=== PATIENT | male | born 1965 | race American Indian/Alaskan Native ===

== ENCOUNTER 2019-11-12 17:15 | Inpatient (IN) | payer OTHER ==
[2019-11-12 18:54] LABS: Bilirubin,Urine NEG (Negative); Blood,Urine NEG (Negative); Color,Urine Yellow (Yellow); Protein,Urine <15 mg/dL mg/dL (Negative); Urobilinogen,Urine < 2.0 mg/dL (<2.0); WBC,Urine < 1.0 /HPF (0.0-6.0)
--- NOTE | 2019-11-12 20:04 | XRay Report ---
CHEST 2 VIEWS INDICATION / CLINICAL INFORMATION: Chest Pain. COMPARISON: None available. FINDINGS: SUPPORT DEVICES: None. HEART / MEDIASTINUM: The heart size and pulmonary vasculature are normal. There is mild aortic tortuo sity without aneurysm. LUNGS / PLEURA: No significant pulmonary or pleural abnormality. No pneumothorax. ADDITIONAL FINDINGS: There is mild gaseous distention of the visualized portion of the colon. IMPRESSION: 1. No acute pulmonary disease. 2. Mild nonspecific gaseous distention of the visualized portion of the colon. Signer Name: Spencer Matthews MD Signed: 11/12/2019 7:59 PM Workstation Name: [id number]
--- NOTE | 2019-11-12 21:04 | Emergency Department Report ---
ED Chest Pain HPI - General Chief Complaint: Chest Pain Stated Complaint: CHEST PAIN PUI?: No Time Seen by Provider: 11/12/19 20:55 Source: patient Mode of arrival: Ambulatory Limitations: No Limitations - History of Present Illness Initial Comments: Patient is a 54-year-old male that presents emergency room with complaints of l eft-sided chest pain. Patient dates his chest pain started 2 PM today. Patient states his chest pain is worse with anxiety and exertion and movement. Patient states the chest pain is better with rest. Patient also complains of shortness of breath. Patient dates that shortness of breath better with rest and worse with exertion. Patient states that he has anxiety and PTSD and has had 2 MIs and cardiac stents. Patient states he is also had A. fib in the past. Patient denies fever and chills. Patient denies diarrhea. Patient denies nausea vomiting. Patient denies recent travel. Patient denies recent international travel. Patient denies exposure to the novel coronavirus. Patient denies sick contacts. Patient denies fever and chills. Patient denies cough. Patient denies diarrhe a. Patient denies coming in contact with anybody with symptoms of the novel coronavirus. MD Complaint: chest pain -: Sudden, days(s) Onset: during rest Pain Location: substernal, left chest Pain Radiation: none Severity: severe Severity scale (0 -10): 8 Quality: heaviness Improves With: rest Worsens With: exertion re: dyspnea, sense of impending doom. denies: nausea, vomting, diaphoresis Other Symptoms: denies: cough, fever, syncope, rash, acid taste in mouth, leg swelling, palpitations, burping Treatments Prior to Arrival: none Aspirin use within the Past 7 Days: (1) Yes - Related Data On Oral Contraceptives: No Allergies Allergy/AdvReac Type Severity Reaction Status Date / Time No Known Allergies Allergy Unverified 11/12/19 18:17 Heart Score - HEART Score History: Moderately suspicious EKG: Non-specific Age: 45-65 Risk factors: > 3 risk factors or hx of atherosclerotic disease Troponin: < normal limit HEART Score: 5 ED Review of Systems ROS: Stated complaint: CHEST PAIN Other details as noted in HPI Constitutional: denies: chills, fever Eyes: denies: eye pain, eye discharge, vision change ENT: denies: ear pain, throat pain Respiratory: shortness of breath. denies: cough, wheezing Cardiovascular: chest pain. denies: palpitations Endocrine: no symptoms reported Gastrointestinal: denies: abdominal pain, nausea, diarrhea Genitourinary: denies: urgency, dysuria Musculoskeletal: denies: back pain, joint swelling, arthralgia Skin: denies: rash, lesions Neurological: denies: headache, weakness, paresthesias Psychiatric: denies: anxiety, depression Hematological/Lymphatic: denies: easy bleeding, easy bruising ED Past Medical Hx - Past Medical History Previous Medical History?: Yes Hx Heart Attack/AMI: Yes Hx Psychiatric Treatment: Yes (anxiety) - Surgical History Past Surgical History?: Yes Additional Surgical History: caridac stent - Family History Family history: no significant - Social History Smoking Status: Current Every Day Smoker Substance Use Type: Alcohol ED Physical Exam - General Limitations: No Limitations General appearance: alert, in no apparent distress - Head Head exam: Present: atraumatic, normocephalic - Eye Eye exam: Present: normal appearance - ENT ENT exam: Present: mucous membranes moist - Neck Neck exam: Present: normal inspection - Respiratory Respiratory exam: Present: normal lung sounds bilaterally. Absent: respiratory distress - Cardiovascular Cardiovascular Exam: Present: regular rate, normal rhythm. Absent: systolic murmur, diastolic murmur, rubs, gallop - GI/Abdominal GI/Abdominal exam: Present: soft, normal bowel sounds - Rectal Rectal exam: Present: deferred - Extremities Exam Extremities exam: Present: normal inspection - Back Exam Back exam: Present: normal inspection - Neurological Exam Neurological exam: Present: alert, oriented X3 - Psychiatric Psychiatric exam: Present: normal affect, normal mood - Skin Skin exam: Present: warm, dry, intact, normal color. Absent: rash ED Course Vital Signs 11/12/19 11/12/19 11/12/19 18:15 21:08 22:37 Temperature 98.4 F 98 F Pulse Rate 99 H 85 Respiratory 24 20 18 Rate Blood Pressure 137/98 Blood Pressure 124/71 [Right] O2 Sat by Pulse 99 96 Oximetry 11/12/19 11/12/19 23:24 23:26 Temperature Pulse Rate 79 Respiratory 18 18 Rate Blood Pressure Blood Pressure 121/72 [Right] O2 Sat by Pulse 96 Oximetry - Reevaluation(s) Reevaluation #1: I discussed all results with patient. I discussed plan of care with patient. Patient agrees with plan of care and admission. Patient to be admitted to the hospitalist service. Patient states the pain is better. 11/12/19 23:34 - Consultations Consultation #1: Hospitalist consulted for admission. Hospitalist to admit patient. Bridge orders placed 11/12/19 23:34 MILLY score - Milly Score Age > 65: (0) No Aspirin use within the Past 7 Days: (1) Yes 3 or more CAD Risk Factors: (1) Yes 2 or more Angina events in past 24 hrs: (0) No Known CAD with more than 50% Stenosis: (0) No Elevated Cardiac Markers: (0) No ST Deviation Greater than 0.5mm: (0) No MILLY Score: 2 ED Medical Decision Making - Lab Data Result diagrams: 11/12/19 20:39 11/12/19 20:39 - EKG Data -: EKG Interpreted by Me EKG shows normal: sinus rhythm, axis, intervals, QRS complexes, ST-T waves Rate: normal - Radiology Data Radiology results: report reviewed, image reviewed interpreted by me: No acute findings on chest x-ray. - Medical Decision Making Patient is a 54-year-old male that presents emergency room with complaints of chest pain. Patient history of CAD. Patient admitted to the hospitalist service for further evaluation treatment. Patient will need to be ruled out for ACS. Patient's EKG is negative for an acute finding. No STEMI on EKG. Patient's labs are unremarkable. Patient's initial cardiac work-up is negative. - Differential Diagnosis Chest pain, ACS, S OB, pneumonia, Critical Care Time: Yes Critical care time in (mins) excluding proc time.: 35 Critical care attestation.: If time is entered above; I have spent that time in minutes in the direct care of this critically ill patient, excluding procedure time. Critical Care Time: 35 minutes ED Disposition Clinical Impression: SOB (shortness of breath) Chest pain Qualifiers: Chest pain type: unspecified Qualified Code(s): R07.9 - Chest pain, unspecified CAD (coronary artery disease) Qualifiers: Coronary Disease-Associated Artery/Lesion type: [place] artery [place] vs. transplanted heart: [place] heart Associated angina: with unspecified angina Qualified Code(s): I25.119 - Atherosclerotic heart disease of [place] coronary artery with unspecified angina pectoris Disposition: DC-09 OP ADMIT IP TO THIS HOSP Is pt being admited?: Yes Does the pt Need Aspirin: No Condition: Critical Time of Disposition: 23:38
[2019-11-12] MEDS ORDERED: ASPIRIN 325 MG TAB PO ONE (21:20)
[2019-11-12 21:43] LABS: Basophils % (Auto) 0.4 % (0.0-1.8); Eosinophils # (Auto) 0.1 K/mm3 (0.0-0.4); Eosinophils % (Auto) 1.4 % (0.0-4.3); Hematocrit 42.3 % (35.5-45.6); Hemoglobin 14.4 gm/dl (11.8-15.2); Lymphocytes # (Auto) 3.4 K/mm3 (1.2-5.4); Lymphocytes % (Auto) 46.1 % (13.4-35.0); Mean Corpuscular HGB Conc 34 % (32-34); Mean Corpuscular Volume 97 fl (84-94); Monocytes # (Auto) 0.6 K/mm3 (0.0-0.8); Monocytes % (Auto) 8.4 % (0.0-7.3); Platelet Count 312 K/mm3 (140-440); Red Blood Count 4.36 M/mm3 (3.65-5.03)
[2019-11-12 22:09] LABS: Alanine Aminotransferase 19 units/L (7-56); Albumin 4.6 g/dL (3.9-5); BUN/Creatinine Ratio 22; Blood Urea Nitrogen 22 mg/dL (9-20); Calcium 9.1 mg/dL (8.4-10.2); Hemolysis Index 5
[2019-11-12] MEDS ORDERED: MORPHINE 2 MG/1 ML INJ ONE (22:31)
[2019-11-12] MEDS ORDERED: MORPHINE 2 MG/1 ML INJ IV ONE (22:34)
[2019-11-12] MEDS ORDERED: HYDROmorphone 1 MG/1 ML INJ IV ONE (23:22)
[2019-11-12] MEDS ORDERED: HYDROmorphone 1 MG/1 ML INJ ONE (23:22)
[2019-11-13] MEDS ORDERED: MORPHINE 2 MG/1 ML INJ IV PRN (01:21)
[2019-11-13] MEDS ORDERED: ACETAMINOPHEN 325 MG TAB PO PRN (01:22)
[2019-11-13] MEDS ORDERED: ONDANSETRON 4 MG/2 ML INJ IV PRN (01:22)
[2019-11-13] MEDS ORDERED: NITROGLYCERIN 0.4 MG TAB SUBL SL PRN (01:24)
--- NOTE | 2019-11-13 04:16 | History and Physical Report ---
History of Present Illness Date of examination: 11/12/19 Date of admission: 11/12/19 23:33 Chief complaint: Chest pain History of present illness: 54 year old male presenting with precordial sharp chest pain worse with anxiety and movement but better with rest. pain is associated with shortness of breath . There is no nausea and vomiting and no diaphoresis or dizziness. Pain is relieved with pain medication. Past History Past Medical History: acute NH, CAD, other (ANXIETY AND PTSD) Social history: smoking (CARDIAC STENT), alcohol abuse Family history: no significant family history Medications and Allergies Allergies Allergy/AdvReac Type Severity Reaction Status Date / Time No Known Allergies Allergy Unverified 11/12/19 18:17 Active Meds: Active Medications Acetaminophen (Tylenol) 650 mg PO Q4H PRN PRN Reason: Headache Aspirin (Aspirin) 325 mg PO QDAY BANDAR Heparin Sodium (Porcine) (Heparin) 5,000 unit SUB-Q Q12HR [facility] Morphine Sulfate (Morphine) 2 mg IV Q3H PRN PRN Reason: Pain, Moderate (4-6) Nitroglycerin (Nitro-Bid 2%) 0.5 inch TP QIDNTG [facility]; Protocol Nitroglycerin (Nitrostat) 0.4 mg SL .Q5MIN PRN PRN Reason: Chest Pain Ondansetron HCl (Zofran) 4 mg IV Q8H PRN PRN Reason: Nausea And Vomiting Review of Systems Constitutional: no weight loss, no weight gain, no fever, no sweats, no fatigue, no weakness, no malaise, no poor appetite Eyes: bilateral: other (NO BILATERAL EYE SYMPTOM) Ears, nose, mouth and throat: no ear pain, no decreased hearing, no nose pain, no nasal congestion, no nasal discharge, no sinus pressure, no mouth pain, no dysphagia, no hoarseness, no sore throat, no voice changes, no headache, no vertigo Cardiovascular: chest pain, shortness of breath, no orthopnea, no palpitations, no rapid/irregular heart beat, no edema, no syncope, no lightheadedness, no claudication, no high blood pressure Respiratory: shortness of breath, no cough, no cough with sputum, no excessive sputum, no hemoptysis, no congestion, no wheezing, no pleurisy, no pain, no sleep apnea, no home oxygen Gastrointestinal: no nausea, no vomiting, no diarrhea, no constipation, no change in bowel habits, no hematemesis, no coffee ground emesis, no melena, no hematochezia, no loss of appetite, no early satiety, no heartburn, no indigestion, no jaundice Genitourinary Male: no hematuria, no flank pain, no discharge, no urinary frequency, no urinary hesitancy, no nocturia, no incontinence, no impotence Rectal: no pain, no incontinence, no itching, no hemorrhoids, no flatulence Musculoskeletal: no neck stiffness, no neck pain, no shooting arm pain, no arm numbness/tingling, no low back pain, no shooting leg pain, no leg numb ness/tingling, no morning stiffness, no muscle weakness, no muscle cramps, no myalgias, no atrophy Integumentary: no rash, no pruritis, no redness, no sores, no wounds, no jau ndice, no boils, no lesions, no darkening of skin, no depigmentation, no dryness, no color changes, no striae, no hirsutism Neurological: no head injury, no paralysis, no weakness, no numbness, no tingling, no seizures, no syncope, no tremors, no ataxia, no headaches, no michael bairon, no convulsions, no aphasia, no change in speech, no change in mentation, no confusion, no double vision, no loss of vision Psychiatric: anxiety, no insomnia, no hypersomnia, no change in libido, no hopelessness Endocrine: no cold intolerance, no heat intolerance, no polyphagia, no polyuria, no nocturia, no palpatations Hematologic/Lymphatic: no easy bruising, no easy bleeding Exam - Constitutional Vitals: Temp Pulse Resp BP Pulse Ox 98.2 F 81 20 133/84 96 11/13/19 01:00 11/13/19 01:00 11/13/19 01:00 11/13/19 01:00 11/13/19 01:00 General appearance: Present: mild distress. Absent: disheveled - EENT Eyes: Present: PERRL, EOM intact. Absent: scleral icterus ENT: hearing intact, clear oral mucosa, no oropharyngeal erythema, no edentulous - Neck Neck: Present: supple, normal ROM. Absent: rigidity, enlarged thyroid, masses or JVD, carotid bruits - Respiratory Respiratory effort: normal - Cardiovascular Rhythm: regular Heart Sounds: Present: S1 & S2. Absent: gallop, systolic murmur, diastolic murmur, click - Extremities Extremities: no ischemia, No edema Peripheral Pulses: within normal limits - Abdominal General gastrointestinal: Present: soft, non-tender, non-distended. Absent: tender, distended, rigid, hepatomegaly, splenomegaly, mass, hernia Male genitourinary: Present: deferred - Rectal Rectal Exam: deferred - Integumentary Integumentary: Present: clear, warm, dry - Musculoskeletal Musculoskeletal: strength equal bilaterally - Psychiatric Psychiatric: appropriate mood/affect HEART Score - HEART Score EKG: Non-specific Age: 45-65 Risk factors: > 3 risk factors or hx of atherosclerotic disease Troponin: Troponin T < 0.010 ng/mL (0.00-0.029) 11/13/19 00:17 Troponin: < normal limit Results - Labs CBC & Chem 7: 11/12/19 20:39 11/12/19 20:39 Labs: Laboratory Last Values WBC 7.4 K/mm3 (4.5-11.0) 11/12/19 20:39 RBC 4.36 M/mm3 (3.65-5.03) 11/12/19 20:39 Hgb 14.4 gm/dl (11.8-15.2) 11/12/19 20:39 Hct 42.3 % (35.5-45.6) 11/12/19 20:39 MCV 97 fl (84-94) H 11/12/19 20:39 MCH 33 pg (28-32) H 11/12/19 20:39 MCHC 34 % (32-34) 11/12/19 20:39 RDW 14.0 % (13.2-15.2) 11/12/19 20:39 Plt Count 312 K/mm3 (140-440) 11/12/19 20:39 Lymph % (Auto) 46.1 % (13.4-35.0) H 11/12/19 20:39 [place] % (Auto) 8.4 % (0.0-7.3) H 11/12/19 20:39 Eos % (Auto) 1.4 % (0.0-4.3) 11/12/19 20:39 Baso % (Auto) 0.4 % (0.0-1.8) 11/12/19 20:39 Lymph # 3.4 K/mm3 (1.2-5.4) 11/12/19 20:39 [place] # 0.6 K/mm3 (0.0-0.8) 11/12/19 20:39 Eos # 0.1 K/mm3 (0.0-0.4) 11/12/19 20:39 Baso # 0.0 K/mm3 (0.0-0.1) 11/12/19 20:39 Seg Neutrophils % 43.7 % (40.0-70.0) 11/12/19 20:39 Seg Neutrophils # 3.2 K/mm3 (1.8-7.7) 11/12/19 20:39 Sodium 137 mmol/L (137-145) 11/12/19 20:39 Potassium 3.5 mmol/L (3.6-5.0) L 11/12/19 20:39 Chloride 98.5 mmol/L (98-107) 11/12/19 20:39 Carbon Dioxide 21 mmol/L (22-30) L 11/12/19 20:39 Anion Gap 21 mmol/L 11/12/19 20:39 BUN 22 mg/dL (9-20) H 11/12/19 20:39 Creatinine 1.0 mg/dL (0.8-1.5) 11/12/19 20:39 Estimated GFR > 60 ml/min 11/12/19 20:39 BUN/Creatinine Ratio 22 % 11/12/19 20:39 Glucose 109 mg/dL (75-100) H 11/12/19 20:39 Calcium 9.1 mg/dL (8.4-10.2) 11/12/19 20:39 Total Bilirubin 0.70 mg/dL (0.1-1.2) 11/12/19 20:39 AST 31 units/L (5-40) 11/12/19 20:39 ALT 19 units/L (7-56) 11/12/19 20:39 Alkaline Phosphatase 70 units/L (35-129) 11/12/19 20:39 Troponin T < 0.010 ng/mL (0.00-0.029) 11/13/19 00:17 Total Protein 8.0 g/dL (6.3-8.2) 11/12/19 20:39 Albumin 4.6 g/dL (3.9-5) 11/12/19 20:39 Albumin/Globulin Ratio 1.4 % 11/12/19 20:39 Urine Color Yellow (Yellow) 11/12/19 18:38 Urine Turbidity Clear (Clear) 11/12/19 18:38 Urine pH 5.0 (5.0-7.0) 11/12/19 18:38 Ur Specific [place] 1.015 (1.003-1.030) 11/12/19 18:38 Urine Protein <15 mg/dl mg/dL (Negative) 11/12/19 18:38 Urine Glucose (UA) Neg mg/dL (Negative) 11/12/19 18:38 Urine Ketones 20 mg/dL (Negative) 11/12/19 18:38 Urine Blood Neg (Negative) 11/12/19 18:38 Urine Nitrite Neg (Negative) 11/12/19 18:38 Urine Bilirubin Neg (Negative) 11/12/19 18:38 Urine Urobilinogen < 2.0 mg/dL (<2.0) 11/12/19 18:38 Ur Leukocyte Esterase Neg (Negative) 11/12/19 18:38 Urine WBC (Auto) < 1.0 /HPF (0.0-6.0) 11/12/19 18:38 Urine RBC (Auto) 3.0 /HPF (0.0-6.0) 11/12/19 18:38 Jimenez/IV: IV Catheter Type [Right Hand] INT / Saline Lock Assessment and Plan - Patient Problems (1) Hypokalemia Current Visit: Yes Status: Acute Plan to address problem: I.V Potassium replacement (2) Chest pain Current Visit: Yes Status: Acute Qualifiers: Chest pain type: unspecified Qualified Code(s): R07.9 - Chest pain, unspecified Plan to address problem: 1. Telemetry observation 2. Serial cardiac enzymes 3. Nitro paste and sublingual nitroglycerin 4. NPO and lexican stress test 5. I.V Morphine for pain 6. I.V Zofran for nausea and vomiting 7. PO Aspirin 8. Tylenol Po PRN headache 9. Oxygen by N/Cannula
[2019-11-13 06:10] LABS: Creatine Kinase MB 6.6 ng/mL (0.0-4.0)
[2019-11-13] MEDS ORDERED: REGADENOSON 0.4 MG/5 ML INJ IV ONE (07:05)
[2019-11-13] MEDS: ASPIRIN 325 MG TAB PO SCH (10:28)
[2019-11-13] MEDS: NITROGLYCERIN 2% OINT 1 GM TP SCH ×3 (10:29→19:52)
--- NOTE | 2019-11-13 10:35 | Discharge Summary ---
Providers - Providers Date of Admission: 11/12/19 23:33 Attending physician: CYNTHIA MARTINEZ MD Primary care physician: HOME HEALTH CLINICIAN Hospitalization Condition: Stable Hospital course: denies suicidal ideation wants to get established with psychiatrist wants pain medicine provided psych outpatient follow up cardiology outpatient gave a dose of toradol Disposition: DC-01 TO HOME OR SELFCARE Time spent for discharge: 35 mins Exam - Constitutional Vitals: Temp Pulse Resp BP Pulse Ox 98.0 F 68 18 122/77 96 11/13/19 03:58 11/13/19 10:29 11/13/19 03:58 11/13/19 10:29 11/13/19 03:58 Plan Activity: advance as tolerated, fall precautions Diet: low fat Special Instructions: record daily BP diary Follow up with: AYDIN MENENDEZ MD [Primary Care Provider] - 7 Days BOAZ BARRIOS MD [Staff Physician] - 7 Days [facility] [Outside] - 7 Days Prescriptions: AtorvaSTATin [Lipitor] 40 mg PO QHS #30 tab Aspirin [Adult Aspirin] 81 mg PO DAILY #30 tablet. Nitroglycerin [Nitrostat] 0.4 mg SL Q5M PRN #10 tab PRN Reason: Chest Pain traMADoL [Ultram] 50 mg PO Q6HR PRN #10 tablet PRN Reason: Pain
[2019-11-13] MEDS: HEPARIN 5,000 UNIT/1 ML VIAL SUB-Q SCH ×2 (12:28→21:54)
[2019-11-13 14:43] LABS: Creatine Kinase MB 5.6 ng/mL (0.0-4.0)
[2019-11-13] MEDS ORDERED: KETOROLAC 30 MG/1 ML INJ IV ONE (16:36)
--- NOTE | 2019-11-13 18:04 | Event Note ---
Date: 11/13/19 Primary team has requested me to reassess the patient Patient says he has PTSD and is suicidal Patient says that even if his discharge is going to come back to the emergency room for evaluation suicidal ideation and thoughts. Discussed with primary team and will make the patient [id number] and discontinue pain medications. Primary team Dr. peterson to follow the patient
--- NOTE | 2019-11-13 20:11 | Treadmill Report ---
THALLIUM STRESS TEST LEFT VENTRICLE: Left ventricular chamber size is within normal spread. Perfusion study demonstrates mild diaphragmatic attenuation artifact, also demonstrates normal apical thinning, otherwise homogeneous uptake of the tracer in all segments. No significant defects identified. Gated analysis demonstrates normal left ventricular systolic function, ejection fraction 63%. CONCLUSION: Normal myocardial perfusion study. JOB# [id number] CA/NTS
[2019-11-14] MEDS: KETOROLAC 30 MG/1 ML INJ IV SCH ×5 (01:58→17:57)
[2019-11-14] MEDS: NITROGLYCERIN 2% OINT 1 GM TP SCH ×4 (05:36→17:58)
--- NOTE | 2019-11-14 08:44 | Progress Note ---
Assessment and Plan Assessment and plan: Patient is a 54-year-old male with past medical history of CAD status post PTCA according to the patient also history of A. fib in the past on no medication outpatient presented to the ED with complaint of chest pain x2 days states that he moved from [place] about 3 weeks ago. He also reports that he has history of anxiety disorder and PTSD due to his son killing himself. He continues to have persistent chest pain and anxious appearing despite negative stress test and requested to be "[place] acted" as he is unsure what he will do to himself if discharged with the pain that he is dealing with. His vital signs are stable despite his complaint of greater than 10 out of 10 chest pressure. He does not demonstrate any acute shortness of breath. Trial of Toradol did not appear to provide any relief. He persistently asked for a psych evaluation. Atypical chest pain possible costochondritis Anxiety disorder Suicidal ideation PTSD Morbid obesity Plan Continue current management Placed on 1013 hold as patient repeatedly insisted that he will hurt himself on discharge even after earlier saying that he does not plan to do that but only after he realized he would not be getting IV pain medication on discharge. Mental health is definitely an issue that should not be tolerated and as a resu lt we will get psych to evaluate the patient Continue supportive care Cardiology input appreciated Stress test reviewed and negative. DVT and GI prophylaxis Late entry as patient was planned for discharge History Interval history: Patient was seen and examined following stress testing complained that he has persistent chest pressure on his left side of his chest. He also further explains that he has PTSD and anxiety disorder and would like to see a psy chiatrist and a credit and loan collections supervisor. He also wanted some pain medication. When advised about the management plan and also asked if he was suicidal the patient stated no that he is not suicidal. An outline and plan discharge plan was laid out but once he realized that continued IV pain medication was not going to be given he stated that he does not know what he will do with his discharge that he may hurt himself and as a result was placed on 1013 which he requested. Hospitalist Physical - Physical exam Narrative exam: VITAL SIGNS: Reviewed. GENERAL: The patient appears normally developed, morbidly obese vital signs as documented. HEAD: No signs of head trauma. EYES: Pupils are equal. Extraocular motions intact. EARS: Hearing grossly intact. MOUTH: Oropharynx is normal. NECK: No adenopathy, no JVD. CHEST: Chest with clear breath sounds bilaterally. No wheezes, rales, or rhonchi. CARDIAC: Regular rate and rhythm. S1 and S2, without murmurs, gallops, or rubs. VASCULAR: No Edema. Peripheral pulses normal and equal in all extremities. ABDOMEN: Soft, non tender and non distended. No rebound or guarding, and no masses palpated. Bowel Sounds normal. MUSCULOSKELETAL: Good range of motion of all major joints. Extremities without clubbing, cyanosis or edema. NEUROLOGIC EXAM: Alert and oriented x 3 No focal sensory or strength deficits. Speech normal. Follows commands. PSYCHIATRIC: Flat affect SKIN: detial exam as documented in skin assessment - Constitutional Vitals: Temp Pulse Resp BP Pulse Ox 98.2 F 86 12 120/72 96 11/14/19 04:55 11/14/19 05:36 11/14/19 04:55 11/14/19 04:55 11/14/19 04:55 General appearance: Present: mild distress. Absent: disheveled HEART Score - HEART Score EKG: Non-specific Age: 45-65 Risk factors: > 3 risk factors or hx of atherosclerotic disease Troponin: Troponin T < 0.010 ng/mL (0.00-0.029) 11/13/19 13:57 Troponin: < normal limit Results - Labs CBC & Chem 7: 11/12/19 20:39 11/12/19 20:39 Labs: Laboratory Last Values WBC 7.4 K/mm3 (4.5-11.0) 11/12/19 20:39 RBC 4.36 M/mm3 (3.65-5.03) 11/12/19 20:39 Hgb 14.4 gm/dl (11.8-15.2) 11/12/19 20:39 Hct 42.3 % (35.5-45.6) 11/12/19 20:39 MCV 97 fl (84-94) H 11/12/19 20:39 MCH 33 pg (28-32) H 11/12/19 20:39 MCHC 34 % (32-34) 11/12/19 20:39 RDW 14.0 % (13.2-15.2) 11/12/19 20:39 Plt Count 312 K/mm3 (140-440) 11/12/19 20:39 Lymph % (Auto) 46.1 % (13.4-35.0) H 11/12/19 20:39 [place] % (Auto) 8.4 % (0.0-7.3) H 11/12/19 20:39 Eos % (Auto) 1.4 % (0.0-4.3) 11/12/19 20:39 Baso % (Auto) 0.4 % (0.0-1.8) 11/12/19 20:39 Lymph # 3.4 K/mm3 (1.2-5.4) 11/12/19 20:39 [place] # 0.6 K/mm3 (0.0-0.8) 11/12/19 20:39 Eos # 0.1 K/mm3 (0.0-0.4) 11/12/19 20:39 Baso # 0.0 K/mm3 (0.0-0.1) 11/12/19 20:39 Seg Neutrophils % 43.7 % (40.0-70.0) 11/12/19 20:39 Seg Neutrophils # 3.2 K/mm3 (1.8-7.7) 11/12/19 20:39 Sodium 137 mmol/L (137-145) 11/12/19 20:39 Potassium 3.5 mmol/L (3.6-5.0) L 11/12/19 20:39 Chloride 98.5 mmol/L (98-107) 11/12/19 20:39 Carbon Dioxide 21 mmol/L (22-30) L 11/12/19 20:39 Anion Gap 21 mmol/L 11/12/19 20:39 BUN 22 mg/dL (9-20) H 11/12/19 20:39 Creatinine 1.0 mg/dL (0.8-1.5) 11/12/19 20:39 Estimated GFR > 60 ml/min 11/12/19 20:39 BUN/Creatinine Ratio 22 % 11/12/19 20:39 Glucose 109 mg/dL (75-100) H 11/12/19 20:39 Calcium 9.1 mg/dL (8.4-10.2) 11/12/19 20:39 Total Bilirubin 0.70 mg/dL (0.1-1.2) 11/12/19 20:39 AST 31 units/L (5-40) 11/12/19 20:39 ALT 19 units/L (7-56) 11/12/19 20:39 Alkaline Phosphatase 70 units/L (35-129) 11/12/19 20:39 Total Creatine Kinase 595 units/L (55-170) H 11/13/19 13:57 CK-MB (CK-2) 5.6 ng/mL (0.0-4.0) H 11/13/19 13:57 CK-MB (CK-2) Rel Index 0.9 (0-4) 11/13/19 13:57 Troponin T < 0.010 ng/mL (0.00-0.029) 11/13/19 13:57 Total Protein 8.0 g/dL (6.3-8.2) 11/12/19 20:39 Albumin 4.6 g/dL (3.9-5) 11/12/19 20:39 Albumin/Globulin Ratio 1.4 % 11/12/19 20:39 Urine Color Yellow (Yellow) 11/12/19 18:38 Urine Turbidity Clear (Clear) 11/12/19 18:38 Urine pH 5.0 (5.0-7.0) 11/12/19 18:38 Ur Specific [place] 1.015 (1.003-1.030) 11/12/19 18:38 Urine Protein <15 mg/dl mg/dL (Negative) 11/12/19 18:38 Urine Glucose (UA) Neg mg/dL (Negative) 11/12/19 18:38 Urine Ketones 20 mg/dL (Negative) 11/12/19 18:38 Urine Blood Neg (Negative) 11/12/19 18:38 Urine Nitrite Neg (Negative) 11/12/19 18:38 Urine Bilirubin Neg (Negative) 11/12/19 18:38 Urine Urobilinogen < 2.0 mg/dL (<2.0) 11/12/19 18:38 Ur Leukocyte Esterase Neg (Negative) 11/12/19 18:38 Urine WBC (Auto) < 1.0 /HPF (0.0-6.0) 11/12/19 18:38 Urine RBC (Auto) 3.0 /HPF (0.0-6.0) 11/12/19 18:38 Jimenez/IV: Voiding Method Toilet IV Catheter Type [Right Hand] INT / Saline Lock Active Medications - Current Medications Current Medications: Generic Name Dose Route Start Last Admin Trade Name Freq PRN Reason Stop Dose Admin Acetaminophen 650 mg 11/13/19 01:22 Tylenol PO Q4H PRN Headache Aspirin 325 mg 11/13/19 10:00 11/13/19 10:28 Aspirin PO 325 mg QDAY BANDAR Administration Heparin Sodium (Porcine) 5,000 unit 11/13/19 01:15 11/13/19 21:54 Heparin SUB-Q 5,000 unit Q12HR BANDAR Administration Ketorolac Tromethamine 15 mg 11/13/19 19:00 11/14/19 05:37 Toradol IV 11/18/19 18:59 15 mg Q6HR BANDAR Administration Nitroglycerin 0.5 inch 11/13/19 06:00 11/14/19 05:36 Nitro-Bid 2% TP 0.5 inch QIDNTG BANDAR Administration Protocol Nitroglycerin 0.4 mg 11/13/19 01:24 Nitrostat SL .Q5MIN PRN Chest Pain Ondansetron HCl 4 mg 11/13/19 01:22 Zofran IV Q8H PRN Nausea And Vomiting
[2019-11-14] MEDS: ASPIRIN 325 MG TAB PO SCH (09:43)
[2019-11-14] MEDS: HEPARIN 5,000 UNIT/1 ML VIAL SUB-Q SCH ×2 (09:44→21:40)
--- NOTE | 2019-11-14 11:02 | Consultation ---
History of Present Illness Consult date: 11/14/19 Consult reason: chest pain History of present illness: Patient is a 54-year-old man who was hospitalized for complaints of atypical, nonexertional and positional chest pain. Serial EKGs have been normal sinus rhythm, normal ECGs. There have been no reported dysrhythmias on telemetry monitoring. The troponin levels x4 were normal. He underwent a Lexiscan thallium stress test which was also normal. The patient has been kept in the hospital for further evaluation of symptoms of depression and possible suicide ideation. From a cardiac standpoint, he has no further chest pain, and no acute cardiac issues. Past History Past Medical History: other (PTSD and chronic anxiety) Social history: smoking (CARDIAC STENT), alcohol abuse Family history: no significant family history Medications and Allergies Allergies Allergy/AdvReac Type Severity Reaction Status Date / Time No Known Allergies Allergy Unverified 11/12/19 18:17 Home Medications Medication Instructions Recorded Confirmed Last Taken Type Aspirin [Adult Aspirin] 81 mg PO DAILY #30 tablet. 11/13/19 Unknown Rx AtorvaSTATin [Lipitor] 40 mg PO QHS #30 tab 11/13/19 Unknown Rx Nitroglycerin [Nitrostat] 0.4 mg SL Q5M PRN #10 tab 11/13/19 Unknown Rx traMADoL [Ultram] 50 mg PO Q6HR PRN #10 tablet 11/13/19 Unknown Rx Active Meds: Active Medications Acetaminophen (Tylenol) 650 mg PO Q4H PRN PRN Reason: Headache Aspirin (Aspirin) 325 mg PO QDAY [facility] Last Admin: 11/14/19 09:43 Dose: 325 mg Documented by: Heparin Sodium (Porcine) (Heparin) 5,000 unit SUB-Q Q12HR [facility] Last Admin: 11/14/19 09:44 Dose: 5,000 unit Documented by: Ketorolac Tromethamine (Toradol) 15 mg IV Q6HR [facility] Stop: 11/18/19 18:59 Last Admin: 11/14/19 05:37 Dose: 15 mg Documented by: Nitroglycerin (Nitro-Bid 2%) 0.5 inch TP QIDNTG [facility]; Protocol Last Admin: 11/14/19 09:44 Dose: 0.5 inch Documented by: Nitroglycerin (Nitrostat) 0.4 mg SL .Q5MIN PRN PRN Reason: Chest Pain Ondansetron HCl (Zofran) 4 mg IV Q8H PRN PRN Reason: Nausea And Vomiting Review of Systems Cardiovascular: chest pain, no orthopnea, no palpitations, no rapid/irregular heart beat, no edema, no syncope, no lightheadedness, no shortness of breath Physical Examination Vital Signs Temp Pulse Resp BP Pulse Ox 98.4 F 99 H 24 137/98 99 11/12/19 18:15 11/12/19 18:15 11/12/19 18:15 11/12/19 18:15 11/12/19 18:15 General appearance: no acute distress HEENT: Positive: PERRL Neck: Positive: neck supple Cardiac: Positive: Reg Rate and Rhythm Lungs: Positive: clear to auscultation Neuro: Positive: Grossly Intact Abdomen: Positive: Soft Male genitourinary: Positive: deferred Skin: Positive: Clear Extremities: Absent: edema Results 11/12/19 20:39 11/12/19 20:39 Cardiac Enzymes 11/13/19 Range/Units 13:57 CK-MB (CK-2) 5.6 H (0.0-4.0) ng/mL EKG interpretations - Telemetry EKG Rhythm: Sinus Rhythm Assessment and Plan - Patient Problems (1) Chest pain Current Visit: Yes Status: Acute Qualifiers: Chest pain type: unspecified Qualified Code(s): R07.9 - Chest pain, unspecified Plan to address problem: Chest pain is atypical, serial ECGs are normal, serial troponin levels are normal, Lexiscan thallium stress test is normal. No further cardiac work-up is indicated. We will follow intermittently.
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
[2019-11-14] MEDS: PARoxetine 10 MG TAB PO SCH (14:02)
[2019-11-14] MEDS: OMEGA-3 FATTY ACIDS/FISH OIL 1 GRAM CAP PO SCH ×2 (14:02→21:39)
--- NOTE | 2019-11-14 17:06 | Progress Note ---
Assessment and Plan Assessment and plan: Patient is a 54-year-old male with past medical history of CAD status post PTCA according to the patient also history of A. fib in the past on no medication outpatient presented to the ED with complaint of chest pain x2 days states that he moved from [place] about 3 weeks ago. He also reports that he has history of anxiety disorder and PTSD due to his son killing himself. He continues to have persistent chest pain and anxious appearing despite negative stress test and requested to be "Gonzales acted" as he is unsure what he will do to himself if discharged with the pain that he is dealing with. His vital signs are stable despite his complaint of greater than 10 out of 10 chest pressure. He does not demonstrate any acute shortness of breath. Trial of Toradol did not appear to provide any relief. He persistently asked for a psych evaluation. 11/13: Continue supportive care, continue with psych recommendation, Continue 1013 and antipyschotics as initiated by Pysch team. Atypical chest pain possible costochondritis Anxiety disorder Suicidal ideation with prior attempt PTSD Morbid obesity Plan Continue current management Placed on 1013 hold as patient repeatedly insisted that he will hurt himself on discharge even after earlier saying that he does not plan to do that but only after he realized he would not be getting IV pain medication on discharge. Mental health is definitely an issue that should not be tolerated and as a result we will get psych to evaluate the patient Continue supportive care Cardiology input appreciated Stress test reviewed and negative. DVT and GI prophylaxis Plan discussed with patient Sitter at bedside History Interval history: Patient was seen and examined, still with chest wall pain, reports suicidal ideation. Hospitalist Physical - Physical exam Narrative exam: VITAL SIGNS: Reviewed. GENERAL: The patient appears normally developed, morbidly obese vital signs as documented. HEAD: No signs of head trauma. EYES: Pupils are equal. Extraocular motions intact. EARS: Hearing grossly intact. MOUTH: Oropharynx is normal. NECK: No adenopathy, no JVD. CHEST: Chest with clear breath sounds bilaterally. No wheezes, rales, or rhonchi. CARDIAC: Regular rate and rhythm. S1 and S2, without murmurs, gallops, or rubs. VASCULAR: No Edema. Peripheral pulses normal and equal in all extremities. ABDOMEN: Soft, non tender and non distended. No rebound or guarding, and no masses palpated. Bowel Sounds normal. MUSCULOSKELETAL: Good range of motion of all major joints. Extremities without clubbing, cyanosis or edema. NEUROLOGIC EXAM: Alert and oriented x 3 No focal sensory or strength deficits. Speech normal. Follows commands. PSYCHIATRIC: Flat affect SKIN: detial exam as documented in skin assessment - Constitutional Vitals: Temp Pulse Resp BP Pulse Ox 97.9 F 66 13 112/68 96 11/14/19 11:46 11/14/19 14:02 11/14/19 11:46 11/14/19 14:02 11/14/19 11:46 General appearance: Present: no acute distress HEART Score - HEART Score EKG: Non-specific Age: 45-65 Risk factors: > 3 risk factors or hx of atherosclerotic disease Troponin: Troponin T < 0.010 ng/mL (0.00-0.029) 11/13/19 13:57 Troponin: < normal limit Results - Labs CBC & Chem 7: 11/12/19 20:39 11/12/19 20:39 Labs: Laboratory Last Values WBC 7.4 K/mm3 (4.5-11.0) 11/12/19 20:39 RBC 4.36 M/mm3 (3.65-5.03) 11/12/19 20:39 Hgb 14.4 gm/dl (11.8-15.2) 11/12/19 20:39 Hct 42.3 % (35.5-45.6) 11/12/19 20:39 MCV 97 fl (84-94) H 11/12/19 20:39 MCH 33 pg (28-32) H 11/12/19 20:39 MCHC 34 % (32-34) 11/12/19 20:39 RDW 14.0 % (13.2-15.2) 11/12/19 20:39 Plt Count 312 K/mm3 (140-440) 11/12/19 20:39 Lymph % (Auto) 46.1 % (13.4-35.0) H 11/12/19 20:39 [place] % (Auto) 8.4 % (0.0-7.3) H 11/12/19 20:39 Eos % (Auto) 1.4 % (0.0-4.3) 11/12/19 20:39 Baso % (Auto) 0.4 % (0.0-1.8) 11/12/19 20:39 Lymph # 3.4 K/mm3 (1.2-5.4) 11/12/19 20:39 [place] # 0.6 K/mm3 (0.0-0.8) 11/12/19 20:39 Eos # 0.1 K/mm3 (0.0-0.4) 11/12/19 20:39 Baso # 0.0 K/mm3 (0.0-0.1) 11/12/19 20:39 Seg Neutrophils % 43.7 % (40.0-70.0) 11/12/19 20:39 Seg Neutrophils # 3.2 K/mm3 (1.8-7.7) 11/12/19 20:39 Sodium 137 mmol/L (137-145) 11/12/19 20:39 Potassium 3.5 mmol/L (3.6-5.0) L 11/12/19 20:39 Chloride 98.5 mmol/L (98-107) 11/12/19 20:39 Carbon Dioxide 21 mmol/L (22-30) L 11/12/19 20:39 Anion Gap 21 mmol/L 11/12/19 20:39 BUN 22 mg/dL (9-20) H 11/12/19 20:39 Creatinine 1.0 mg/dL (0.8-1.5) 11/12/19 20:39 Estimated GFR > 60 ml/min 11/12/19 20:39 BUN/Creatinine Ratio 22 % 11/12/19 20:39 Glucose 109 mg/dL (75-100) H 11/12/19 20:39 Calcium 9.1 mg/dL (8.4-10.2) 11/12/19 20:39 Total Bilirubin 0.70 mg/dL (0.1-1.2) 11/12/19 20:39 AST 31 units/L (5-40) 11/12/19 20:39 ALT 19 units/L (7-56) 11/12/19 20:39 Alkaline Phosphatase 70 units/L (35-129) 11/12/19 20:39 Total Creatine Kinase 595 units/L (55-170) H 11/13/19 13:57 CK-MB (CK-2) 5.6 ng/mL (0.0-4.0) H 11/13/19 13:57 CK-MB (CK-2) Rel Index 0.9 (0-4) 11/13/19 13:57 Troponin T < 0.010 ng/mL (0.00-0.029) 11/13/19 13:57 Total Protein 8.0 g/dL (6.3-8.2) 11/12/19 20:39 Albumin 4.6 g/dL (3.9-5) 11/12/19 20:39 Albumin/Globulin Ratio 1.4 % 11/12/19 20:39 Urine Color Yellow (Yellow) 11/12/19 18:38 Urine Turbidity Clear (Clear) 11/12/19 18:38 Urine pH 5.0 (5.0-7.0) 11/12/19 18:38 Ur Specific [place] 1.015 (1.003-1.030) 11/12/19 18:38 Urine Protein <15 mg/dl mg/dL (Negative) 11/12/19 18:38 Urine Glucose (UA) Neg mg/dL (Negative) 11/12/19 18:38 Urine Ketones 20 mg/dL (Negative) 11/12/19 18:38 Urine Blood Neg (Negative) 11/12/19 18:38 Urine Nitrite Neg (Negative) 11/12/19 18:38 Urine Bilirubin Neg (Negative) 11/12/19 18:38 Urine Urobilinogen < 2.0 mg/dL (<2.0) 11/12/19 18:38 Ur Leukocyte Esterase Neg (Negative) 11/12/19 18:38 Urine WBC (Auto) < 1.0 /HPF (0.0-6.0) 11/12/19 18:38 Urine RBC (Auto) 3.0 /HPF (0.0-6.0) 11/12/19 18:38 Jimenez/IV: Voiding Method Toilet IV Catheter Type [Right Hand] INT / Saline Lock Active Medications - Current Medications Current Medications: Generic Name Dose Route Start Last Admin Trade Name Freq PRN Reason Stop Dose Admin Acetaminophen 650 mg 11/13/19 01:22 Tylenol PO Q4H PRN Headache Aspirin 325 mg 11/13/19 10:00 11/14/19 09:43 Aspirin PO 325 mg QDAY BANDAR Administration Fish Oil 2,000 mg 11/14/19 14:00 11/14/19 14:02 Fish Oil PO 2,000 mg BID BANDAR Administration Heparin Sodium (Porcine) 5,000 unit 11/13/19 01:15 11/14/19 09:44 Heparin SUB-Q 5,000 unit Q12HR BANDAR Administration Ketorolac Tromethamine 15 mg 11/13/19 19:00 11/14/19 11:42 Toradol IV 11/18/19 18:59 15 mg Q6HR BANDAR Administration Nitroglycerin 0.5 inch 11/13/19 06:00 11/14/19 14:02 Nitro-Bid 2% TP 0.5 inch QIDNTG BANDAR Administration Protocol Nitroglycerin 0.4 mg 11/13/19 01:24 Nitrostat SL .Q5MIN PRN Chest Pain Ondansetron HCl 4 mg 11/13/19 01:22 Zofran IV Q8H PRN Nausea And Vomiting Paroxetine HCl 10 mg 11/14/19 14:00 11/14/19 14:02 Paxil PO 10 mg QDAY [facility] Administration Trazodone HCl 50 mg 11/14/19 22:00 Desyrel PO QHS BANDAR
[2019-11-14] MEDS: traZODone 50 MG TAB PO SCH (21:39)
[2019-11-15] MEDS: KETOROLAC 30 MG/1 ML INJ IV SCH ×5 (01:18→17:29)
[2019-11-15] MEDS: NITROGLYCERIN 2% OINT 1 GM TP SCH ×5 (06:48→17:29)
[2019-11-15] MEDS: OMEGA-3 FATTY ACIDS/FISH OIL 1 GRAM CAP PO SCH ×2 (09:23→22:32)
[2019-11-15] MEDS: ASPIRIN 325 MG TAB PO SCH (09:23)
[2019-11-15] MEDS: HEPARIN 5,000 UNIT/1 ML VIAL SUB-Q SCH ×2 (09:24→22:32)
[2019-11-15] MEDS: PARoxetine 10 MG TAB PO SCH (10:31)
--- NOTE | 2019-11-15 10:56 | Progress Note ---
Subjective - Reason for Consult Consult date: 11/15/19 Reason for consult: MHE Requesting physician: CYNTHIA MARTINEZ - Chief Complaint Chief complaint: Psych Progress HPI Patient seen by bedside with sitter in place, reports improved mood and sleep but persistent suicidal thoughts and he would like if the thoughts could go away. Patient denies any medication side effects REVIEW OF SYSTEMS Constitutional: Negative for weight loss ENT: Negative for stridor Respiratory: Negative for cough or hemoptysis All other systems reviewed and are negative MENTAL STATUS EXAMINATION General Appearance and Behavior: Age appropriate, good hygiene, wearing appropriate clothes, lying in bed, good eye contact, cooperative polite with questioning. Cooperation: Participating/engaged Psychomotor Behavior: psychomotor retardation Mood: Depressed Affect and affective range: dysthymic Thought Process: Fluent/Logical Thought Content: Within reality Speech: Normal volume, Regular rate and rhythm Intellectual Functioning: Average Suicidal Ideation: Suicidal Homicidal Ideation: Denies HI Impulse Control: Unimpaired Insight and Judgment: Normal insight and judgment Memory: Normal Attention: Normal Orientation: Alert, oriented RECOMMENDATIONS Assessment and Plan - Psychiatric problem (1) MDD (major depressive disorder), recurrent severe, without psychosis Current Visit: Yes Status: Acute (2) PTSD (post-traumatic stress disorder) Current Visit: Yes Status: Acute MEDICATIONS: continue current meds Risks, benefits and alternatives of medications discussed with the patient, questions answered and consent obtained from patient. PSYCHOTHERAPY: Supportive psychotherapy provided MEDICAL: Per primary team DELIRIUM PRECAUTIONS: Please re-orient patient frequently, keep lights on during the day, and minimize benzodiazepines and opiates as these medications could worsen patient's confusion. EMBLEM MAKER: DISPOSITION: Recommend inpatient psychiatric hospitalization at this time once medically cleared LEGAL STATUS: 1013 FOLLOW-UP: Will follow Thank you for the consult. Please contact with any questions and/or concerns. Mental Status Exam - Vital signs Last Vital Signs Temp 98.4 F 11/15/19 07:53 Pulse 86 11/15/19 09:24 Resp 18 11/15/19 07:53 BP 110/76 11/15/19 09:24 Pulse Ox 97 11/15/19 09:19 Assessment and Plan - Patient Problems (1) MDD (major depressive disorder), recurrent severe, without psychosis Current Visit: Yes Status: Acute (2) PTSD (post-traumatic stress disorder) Current Visit: Yes Status: Acute
--- NOTE | 2019-11-15 11:14 | Progress Note ---
Assessment and Plan Assessment and plan: Patient is a 54-year-old male with past medical history of CAD status post PTCA according to the patient also history of A. fib in the past on no medication outpatient presented to the ED with complaint of chest pain x2 days states that he moved from [place] about 3 weeks ago. He also reports that he has history of anxiety disorder and PTSD due to his son killing himself. He continues to have persistent chest pain and anxious appearing despite negative stress test and requested to be "Gonzales acted" as he is unsure what he will do to himself if discharged with the pain that he is dealing with. His vital signs are stable despite his complaint of greater than 10 out of 10 chest pressure. He does not demonstrate any acute shortness of breath. Trial of Toradol did not appear to provide any relief. He persistently asked for a psych evaluation. 11/13: Continue supportive care, continue with psych recommendation, Continue 1013 and antipyschotics as initiated by Janis team. 11/14: Continue supportive care. Patient is medically stable for inpatient psych placement Atypical chest pain possible costochondritis Anxiety disorder Suicidal ideation with prior attempt PTSD Morbid obesity Plan Continue current management Placed on 1013 hold as patient repeatedly insisted that he will hurt himself on discharge even after earlier saying that he does not plan to do that but only after he realized he would not be getting IV pain medication on discharge. Mental health is definitely an issue that should not be tolerated and as a result we will get psych to evaluate the patient Continue supportive care Cardiology input appreciated Stress test reviewed and negative. DVT and GI prophylaxis Plan discussed with patient Sitter at bedside History Interval history: Patient was seen and examined, still with chest wall pain but improved, reports suicidal ideation. Hospitalist Physical - Physical exam Narrative exam: VITAL SIGNS: Reviewed. GENERAL: The patient appears normally developed, morbidly obese vital signs as documented. HEAD: No signs of head trauma. EYES: Pupils are equal. Extraocular motions intact. EARS: Hearing grossly intact. MOUTH: Oropharynx is normal. NECK: No adenopathy, no JVD. CHEST: Chest with clear breath sounds bilaterally. No wheezes, rales, or rhonchi. CARDIAC: Regular rate and rhythm. S1 and S2, without murmurs, gallops, or rubs. VASCULAR: No Edema. Peripheral pulses normal and equal in all extremities. ABDOMEN: Soft, non tender and non distended. No rebound or guarding, and no masses palpated. Bowel Sounds normal. MUSCULOSKELETAL: Good range of motion of all major joints. Extremities without clubbing, cyanosis or edema. NEUROLOGIC EXAM: Alert and oriented x 3 No focal sensory or strength deficits. Speech normal. Follows commands. PSYCHIATRIC: Flat affect SKIN: detial exam as documented in skin assessment - Constitutional Vitals: Temp Pulse Resp BP Pulse Ox 98.4 F 86 18 110/76 97 11/15/19 07:53 11/15/19 09:24 11/15/19 07:53 11/15/19 09:24 11/15/19 09:19 General appearance: Present: no acute distress HEART Score - HEART Score EKG: Non-specific Age: 45-65 Risk factors: > 3 risk factors or hx of atherosclerotic disease Troponin: Troponin T < 0.010 ng/mL (0.00-0.029) 11/13/19 13:57 Troponin: < normal limit Results - Labs CBC & Chem 7: 11/12/19 20:39 11/12/19 20:39 Labs: Laboratory Last Values WBC 7.4 K/mm3 (4.5-11.0) 11/12/19 20:39 RBC 4.36 M/mm3 (3.65-5.03) 11/12/19 20:39 Hgb 14.4 gm/dl (11.8-15.2) 11/12/19 20:39 Hct 42.3 % (35.5-45.6) 11/12/19 20:39 MCV 97 fl (84-94) H 11/12/19 20:39 MCH 33 pg (28-32) H 11/12/19 20:39 MCHC 34 % (32-34) 11/12/19 20:39 RDW 14.0 % (13.2-15.2) 11/12/19 20:39 Plt Count 312 K/mm3 (140-440) 11/12/19 20:39 Lymph % (Auto) 46.1 % (13.4-35.0) H 11/12/19 20:39 [place] % (Auto) 8.4 % (0.0-7.3) H 11/12/19 20:39 Eos % (Auto) 1.4 % (0.0-4.3) 11/12/19 20:39 Baso % (Auto) 0.4 % (0.0-1.8) 11/12/19 20:39 Lymph # 3.4 K/mm3 (1.2-5.4) 11/12/19 20:39 [place] # 0.6 K/mm3 (0.0-0.8) 11/12/19 20:39 Eos # 0.1 K/mm3 (0.0-0.4) 11/12/19 20:39 Baso # 0.0 K/mm3 (0.0-0.1) 11/12/19 20:39 Seg Neutrophils % 43.7 % (40.0-70.0) 11/12/19 20:39 Seg Neutrophils # 3.2 K/mm3 (1.8-7.7) 11/12/19 20:39 Sodium 137 mmol/L (137-145) 11/12/19 20:39 Potassium 3.5 mmol/L (3.6-5.0) L 11/12/19 20:39 Chloride 98.5 mmol/L (98-107) 11/12/19 20:39 Carbon Dioxide 21 mmol/L (22-30) L 11/12/19 20:39 Anion Gap 21 mmol/L 11/12/19 20:39 BUN 22 mg/dL (9-20) H 11/12/19 20:39 Creatinine 1.0 mg/dL (0.8-1.5) 11/12/19 20:39 Estimated GFR > 60 ml/min 11/12/19 20:39 BUN/Creatinine Ratio 22 % 11/12/19 20:39 Glucose 109 mg/dL (75-100) H 11/12/19 20:39 Calcium 9.1 mg/dL (8.4-10.2) 11/12/19 20:39 Total Bilirubin 0.70 mg/dL (0.1-1.2) 11/12/19 20:39 AST 31 units/L (5-40) 11/12/19 20:39 ALT 19 units/L (7-56) 11/12/19 20:39 Alkaline Phosphatase 70 units/L (35-129) 11/12/19 20:39 Total Creatine Kinase 595 units/L (55-170) H 11/13/19 13:57 CK-MB (CK-2) 5.6 ng/mL (0.0-4.0) H 11/13/19 13:57 CK-MB (CK-2) Rel Index 0.9 (0-4) 11/13/19 13:57 Troponin T < 0.010 ng/mL (0.00-0.029) 11/13/19 13:57 Total Protein 8.0 g/dL (6.3-8.2) 11/12/19 20:39 Albumin 4.6 g/dL (3.9-5) 11/12/19 20:39 Albumin/Globulin Ratio 1.4 % 11/12/19 20:39 Urine Color Yellow (Yellow) 11/12/19 18:38 Urine Turbidity Clear (Clear) 11/12/19 18:38 Urine pH 5.0 (5.0-7.0) 11/12/19 18:38 Ur Specific [place] 1.015 (1.003-1.030) 11/12/19 18:38 Urine Protein <15 mg/dl mg/dL (Negative) 11/12/19 18:38 Urine Glucose (UA) Neg mg/dL (Negative) 11/12/19 18:38 Urine Ketones 20 mg/dL (Negative) 11/12/19 18:38 Urine Blood Neg (Negative) 11/12/19 18:38 Urine Nitrite Neg (Negative) 11/12/19 18:38 Urine Bilirubin Neg (Negative) 11/12/19 18:38 Urine Urobilinogen < 2.0 mg/dL (<2.0) 11/12/19 18:38 Ur Leukocyte Esterase Neg (Negative) 11/12/19 18:38 Urine WBC (Auto) < 1.0 /HPF (0.0-6.0) 11/12/19 18:38 Urine RBC (Auto) 3.0 /HPF (0.0-6.0) 11/12/19 18:38 Jimenez/IV: Voiding Method Toilet IV Catheter Type [Right Hand] INT / Saline Lock Active Medications - Current Medications Current Medications: Generic Name Dose Route Start Last Admin Trade Name Freq PRN Reason Stop Dose Admin Acetaminophen 650 mg 11/13/19 01:22 Tylenol PO Q4H PRN Headache Aspirin 325 mg 11/13/19 10:00 11/15/19 09:23 Aspirin PO 325 mg QDAY BANDAR Administration Fish Oil 2,000 mg 11/14/19 14:00 11/15/19 09:23 Fish Oil PO 2,000 mg BID BANDAR Administration Heparin Sodium (Porcine) 5,000 unit 11/13/19 01:15 11/15/19 09:24 Heparin SUB-Q 5,000 unit Q12HR BANDAR Administration Ketorolac Tromethamine 15 mg 11/13/19 19:00 11/15/19 06:49 Toradol IV 11/18/19 18:59 15 mg Q6HR BANDAR Administration Nitroglycerin 0.5 inch 11/13/19 06:00 11/15/19 09:24 Nitro-Bid 2% TP 0.5 inch QIDNTG BANDAR Administration Protocol Nitroglycerin 0.4 mg 11/13/19 01:24 Nitrostat SL .Q5MIN PRN Chest Pain Ondansetron HCl 4 mg 11/13/19 01:22 Zofran IV Q8H PRN Nausea And Vomiting Paroxetine HCl 10 mg 11/14/19 14:00 11/15/19 10:31 Paxil PO 10 mg QDAY BANDAR Administration Trazodone HCl 50 mg 11/14/19 22:00 11/14/19 21:39 Desyrel PO 50 mg QHS BANDAR Administration
[2019-11-15] MEDS: traZODone 50 MG TAB PO SCH (22:32)
[2019-11-16] MEDS: KETOROLAC 30 MG/1 ML INJ IV SCH ×3 (00:30→14:25)
[2019-11-16] MEDS: NITROGLYCERIN 2% OINT 1 GM TP SCH ×4 (06:16→17:09)
--- NOTE | 2019-11-16 09:57 | Progress Note ---
Assessment and Plan Assessment and plan: Patient is a 54-year-old male with past medical history of CAD status post PTCA according to the patient also history of A. fib in the past on no medication outpatient presented to the ED with complaint of chest pain x2 days states that he moved from [place] about 3 weeks ago. He also reports that he has history of anxiety disorder and PTSD due to his son killing himself. He continues to have persistent chest pain and anxious appearing despite negative stress test and requested to be "Gonzales acted" as he is unsure what he will do to himself if discharged with the pain that he is dealing with. His vital signs are stable despite his complaint of greater than 10 out of 10 chest pressure. He does not demonstrate any acute shortness of breath. Trial of Toradol did not appear to provide any relief. He persistently asked for a psych evaluation. 11/13: Continue supportive care, continue with psych recommendation, Continue 1013 and antiphyschotics as initiated by Pysch team. 11/14: Continue supportive care. Patient is medically stable for inpatient psych placement 11/15: Awaiting Pysch placement, discontinue Toradol if PRN morphine Atypical chest pain possible costochondritis Anxiety disorder Suicidal ideation with prior attempt PTSD Morbid obesity Plan Continue current management Placed on 1013 hold as patient repeatedly insisted that he will hurt himself on discharge even after earlier saying that he does not plan to do that but only after he realized he would not be getting IV pain medication on discharge. Mental health is definitely an issue that should not be tolerated and as a result we will get psych to evaluate the patient Continue supportive care Cardiology input appreciated Stress test reviewed and negative. DVT and GI prophylaxis Plan discussed with patient Sitter at bedside History Interval history: Patient was seen and examined, still with chest wall pain states that the Toradol is not working he would request for morphine Hospitalist Physical - Physical exam Narrative exam: VITAL SIGNS: Reviewed. GENERAL: The patient appears normally developed, morbidly obese vital signs as documented. HEAD: No signs of head trauma. EYES: Pupils are equal. Extraocular motions intact. EARS: Hearing grossly intact. MOUTH: Oropharynx is normal. NECK: No adenopathy, no JVD. CHEST: Chest with clear breath sounds bilaterally. No wheezes, rales, or rhonchi. CARDIAC: Regular rate and rhythm. S1 and S2, without murmurs, gallops, or rubs. VASCULAR: No Edema. Peripheral pulses normal and equal in all extremities. ABDOMEN: Soft, non tender and non distended. No rebound or guarding, and no masses palpated. Bowel Sounds normal. MUSCULOSKELETAL: Good range of motion of all major joints. Extremities without clubbing, cyanosis or edema. NEUROLOGIC EXAM: Alert and oriented x 3 No focal sensory or strength def icits. Speech normal. Follows commands. PSYCHIATRIC: Flat affect SKIN: detial exam as documented in skin assessment - Constitutional Vitals: Temp Pulse Resp BP Pulse Ox 97.7 F 67 16 119/66 98 11/16/19 04:09 11/16/19 06:16 11/16/19 04:09 11/16/19 06:16 11/16/19 07:51 General appearance: Present: no acute distress HEART Score - HEART Score EKG: Non-specific Age: 45-65 Risk factors: > 3 risk factors or hx of atherosclerotic disease Troponin: Troponin T < 0.010 ng/mL (0.00-0.029) 11/13/19 13:57 Troponin: < normal limit Results - Labs CBC & Chem 7: 11/12/19 20:39 11/12/19 20:39 Labs: Laboratory Last Values WBC 7.4 K/mm3 (4.5-11.0) 11/12/19 20:39 RBC 4.36 M/mm3 (3.65-5.03) 11/12/19 20:39 Hgb 14.4 gm/dl (11.8-15.2) 11/12/19 20:39 Hct 42.3 % (35.5-45.6) 11/12/19 20:39 MCV 97 fl (84-94) H 11/12/19 20:39 MCH 33 pg (28-32) H 11/12/19 20:39 MCHC 34 % (32-34) 11/12/19 20:39 RDW 14.0 % (13.2-15.2) 11/12/19 20:39 Plt Count 312 K/mm3 (140-440) 11/12/19 20:39 Lymph % (Auto) 46.1 % (13.4-35.0) H 11/12/19 20:39 [place] % (Auto) 8.4 % (0.0-7.3) H 11/12/19 20:39 Eos % (Auto) 1.4 % (0.0-4.3) 11/12/19 20:39 Baso % (Auto) 0.4 % (0.0-1.8) 11/12/19 20:39 Lymph # 3.4 K/mm3 (1.2-5.4) 11/12/19 20:39 [place] # 0.6 K/mm3 (0.0-0.8) 11/12/19 20:39 Eos # 0.1 K/mm3 (0.0-0.4) 11/12/19 20:39 Baso # 0.0 K/mm3 (0.0-0.1) 11/12/19 20:39 Seg Neutrophils % 43.7 % (40.0-70.0) 11/12/19 20:39 Seg Neutrophils # 3.2 K/mm3 (1.8-7.7) 11/12/19 20:39 Sodium 137 mmol/L (137-145) 11/12/19 20:39 Potassium 3.5 mmol/L (3.6-5.0) L 11/12/19 20:39 Chloride 98.5 mmol/L (98-107) 11/12/19 20:39 Carbon Dioxide 21 mmol/L (22-30) L 11/12/19 20:39 Anion Gap 21 mmol/L 11/12/19 20:39 BUN 22 mg/dL (9-20) H 11/12/19 20:39 Creatinine 1.0 mg/dL (0.8-1.5) 11/12/19 20:39 Estimated GFR > 60 ml/min 11/12/19 20:39 BUN/Creatinine Ratio 22 % 11/12/19 20:39 Glucose 109 mg/dL (75-100) H 11/12/19 20:39 Calcium 9.1 mg/dL (8.4-10.2) 11/12/19 20:39 Total Bilirubin 0.70 mg/dL (0.1-1.2) 11/12/19 20:39 AST 31 units/L (5-40) 11/12/19 20:39 ALT 19 units/L (7-56) 11/12/19 20:39 Alkaline Phosphatase 70 units/L (35-129) 11/12/19 20:39 Total Creatine Kinase 595 units/L (55-170) H 11/13/19 13:57 CK-MB (CK-2) 5.6 ng/mL (0.0-4.0) H 11/13/19 13:57 CK-MB (CK-2) Rel Index 0.9 (0-4) 11/13/19 13:57 Troponin T < 0.010 ng/mL (0.00-0.029) 11/13/19 13:57 Total Protein 8.0 g/dL (6.3-8.2) 11/12/19 20:39 Albumin 4.6 g/dL (3.9-5) 11/12/19 20:39 Albumin/Globulin Ratio 1.4 % 11/12/19 20:39 Urine Color Yellow (Yellow) 11/12/19 18:38 Urine Turbidity Clear (Clear) 11/12/19 18:38 Urine pH 5.0 (5.0-7.0) 11/12/19 18:38 Ur Specific [place] 1.015 (1.003-1.030) 11/12/19 18:38 Urine Protein <15 mg/dl mg/dL (Negative) 11/12/19 18:38 Urine Glucose (UA) Neg mg/dL (Negative) 11/12/19 18:38 Urine Ketones 20 mg/dL (Negative) 11/12/19 18:38 Urine Blood Neg (Negative) 11/12/19 18:38 Urine Nitrite Neg (Negative) 11/12/19 18:38 Urine Bilirubin Neg (Negative) 11/12/19 18:38 Urine Urobilinogen < 2.0 mg/dL (<2.0) 11/12/19 18:38 Ur Leukocyte Esterase Neg (Negative) 11/12/19 18:38 Urine WBC (Auto) < 1.0 /HPF (0.0-6.0) 11/12/19 18:38 Urine RBC (Auto) 3.0 /HPF (0.0-6.0) 11/12/19 18:38 Jimenez/IV: Voiding Method Toilet IV Catheter Type [Right INT / Saline Lock Forearm] IV Catheter Type [Right Hand] INT / Saline Lock Active Medications - Current Medications Current Medications: Generic Name Dose Route Start Last Admin Trade Name Freq PRN Reason Stop Dose Admin Acetaminophen 650 mg 07/02/20 01:22 Tylenol PO Q4H PRN Headache Aspirin 325 mg 11/13/19 10:00 11/15/19 09:23 Aspirin PO 325 mg QDAY [facility] Administration Fish Oil 2,000 mg 11/14/19 14:00 11/15/19 22:32 Fish Oil PO 2,000 mg BID BANDAR Administration Heparin Sodium (Porcine) 5,000 unit 11/13/19 01:15 11/15/19 22:32 Heparin SUB-Q 5,000 unit Q12HR [facility] Administration Ketorolac Tromethamine 15 mg 11/13/19 19:00 11/16/19 06:18 Toradol IV 11/18/19 18:59 Not Given Q6HR [facility] Nitroglycerin 0.5 inch 11/13/19 06:00 11/16/19 06:16 Nitro-Bid 2% TP 0.5 inch QIDNTG [facility] Administration Protocol Nitroglycerin 0.4 mg 11/13/19 01:24 Nitrostat SL .Q5MIN PRN Chest Pain Ondansetron HCl 4 mg 11/13/19 01:22 Zofran IV Q8H PRN Nausea And Vomiting Paroxetine HCl 10 mg 11/14/19 14:00 11/15/19 10:31 Paxil PO 10 mg QDAY [facility] Administration Trazodone HCl 50 mg 11/14/19 22:00 11/15/19 22:32 Desyrel PO 50 mg QHS BANDAR Administration
[2019-11-16] MEDS: OMEGA-3 FATTY ACIDS/FISH OIL 1 GRAM CAP PO SCH ×2 (10:10→21:49)
[2019-11-16] MEDS: ASPIRIN 325 MG TAB PO SCH (10:10)
[2019-11-16] MEDS: HEPARIN 5,000 UNIT/1 ML VIAL SUB-Q SCH ×2 (10:10→21:50)
[2019-11-16] MEDS: PARoxetine 10 MG TAB PO SCH (10:14)
--- NOTE | 2019-11-16 13:34 | Progress Note ---
Subjective - Reason for Consult Consult date: 11/16/19 Reason for consult: SI, PTSD - Chief Complaint Chief complaint: During my interview with the patient today, he is lying down. Awake. A sitter is at bedside. He is a/o x 3. The patient verbalizes suicidal thoughts without a plan. He says his "son killed himself in front of him." The patient says, "I'm tired of going through this. I need help." He says he's "depressed." The patient says he keeps seeing images "brain matter." He says he "hears my son's voice sometimes." REVIEW OF SYSTEMS Constitutional: Negative for weight loss ENT: Negative for stridor Respiratory: Negative for cough or hemoptysis All other systems reviewed and are negative MENTAL STATUS EXAMINATION General Appearance and Behavior: Age appropriate, good hygiene, wearing chuy ropriate clothes, lying in bed, good eye contact, cooperative polite with questioning. Mood: Depressed Affect and affective range: Restricted Thought Process: Fluent/Logical Thought Content: Within reality Speech: Normal volume, Regular rate and rhythm Suicidal Ideation: Suicidal Homicidal Ideation: Denies HI Hallucinations: Visual (flashbacks)/Auditory Insight and Judgment: Limited Memory/Cognition: Normal Assessment (1) MDD (major depressive disorder), recurrent severe Current Visit: Yes Status: Acute (2) PTSD (post-traumatic stress disorder) Current Visit: Yes Status: Acute PLAN MEDICATIONS: Risperidone 0.25mg po BID Start Zoloft 25mg po daily for depression, anxiety and PTSD d/c paxil Risks, benefits and alternatives of medications discussed with the patient, questions answered and consent obtained from patient. PSYCHOTHERAPY: Supportive psychotherapy provided MEDICAL: Per primary team DELIRIUM PRECAUTIONS: Please re-orient patient frequently, keep lights on during the day, and minimize benzodiazepines and opiates as these medications could worsen patient's confusion. 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 Please contact with any questions and/or concerns. Mental Status Exam - Vital signs Last Vital Signs Temp 97.7 F 11/16/19 04:09 Pulse 85 11/16/19 12:03 Resp 16 11/16/19 04:09 BP 119/66 11/16/19 06:16 Pulse Ox 98 11/16/19 07:51
--- NOTE | 2019-11-16 14:14 | Progress Note ---
Assessment and Plan - Patient Problems (1) Chest pain Current Visit: Yes Status: Acute Qualifiers: Chest pain type: unspecified Qualified Code(s): R07.9 - Chest pain, unspecified Plan to address problem: Chest pain was atypical, serial ECGs were normal, serial troponin levels were normal, Lexiscan thallium stress test was normal. No further cardiac work-up is indicated. We will follow intermittently. Subjective Date of service: 11/16/19 Interval history: Patient looks and feels well, no cardiac complaints. Objective Vital Signs Temp Pulse Pulse Resp BP Pulse Ox 11/16/19 12:03 85 11/16/19 07:51 98 11/16/19 06:16 67 119/66 11/16/19 04:09 97.7 F 58 L 16 115/78 99 11/15/19 22:56 97.6 F 61 16 115/71 99 11/15/19 22:00 61 61 18 96 11/15/19 21:15 99 11/15/19 19:17 98.6 F 61 16 115/78 96 11/15/19 17:29 87 99/83 11/15/19 17:27 67 103/55 96 - Physical Examination General: Appears Well, No Apparent Distress HEENT: Positive: PERRL Neck: Positive: neck supple Cardiac: Positive: Reg Rate and Rhythm Lungs: Positive: Decreased Breath Sounds Neuro: Positive: Grossly Intact Abdomen: Positive: Soft Skin: Positive: Clear Extremities: Absent: edema
[2019-11-16] MEDS: risperiDONE 0.25 MG TAB PO SCH ×2 (14:26→21:50)
[2019-11-16] MEDS: MORPHINE 2 MG/1 ML INJ IV PRN ×2 (17:09→21:50)
[2019-11-16] MEDS: traZODone 50 MG TAB PO SCH (21:49)
[2019-11-17 04:54] VITALS: BP 103/71
--- NOTE | 2019-11-17 08:21 | Discharge Summary ---
Providers - Providers Date of Admission: 11/14/19 12:20 Attending physician: CYNTHIA MARTINEZ MD 11/13/19 14:08 Consult to Mental Health [CONS] Stat Reason For Exam: Patient's request 11/13/19 14:36 Consult to Physician [CONS] Routine Comment: Consulting Provider: BOAZ BARRIOS Physician Instructions: Reason For Exam: chest pain 11/13/19 18:12 Consult to Mental Health [CONS] Routine Reason For Exam: PTSD and suicidal ideation Primary care physician: MEDIATION COMMISSIONER Hospitalization Condition: Stable Disposition: [id number]/[place]-[id number] PSY HOSP/PSY UNIT Exam - Constitutional Vitals: Temp Pulse Resp BP Pulse Ox 98.0 F 64 16 103/71 94 11/17/19 04:53 11/17/19 04:53 11/17/19 04:53 11/17/19 04:53 11/17/19 04:53 Plan Activity: advance as tolerated, fall precautions Diet: low fat Special Instructions: record daily weights, record daily BP diary Follow up with: [facility] [Outside] - 7 Days BOAZ BARRIOS MD [Staff Physician] - 7 Days PRIMARY CAREMD [Primary Care Provider] - 7 Days Prescriptions: traZODone [Desyrel] 50 mg PO QHS #14 tablet AtorvaSTATin [Lipitor] 40 mg PO QHS #30 tab Aspirin [Adult Aspirin] 81 mg PO DAILY #30 tablet. [place]-3 Fatty Acids/Fish Oil [Fish Oil] 2,000 mg PO BID #30 capsule Nitroglycerin [Nitrostat] 0.4 mg SL Q5M PRN #10 tab PRN Reason: Chest Pain risperiDONE [RisperDAL] 0.25 mg PO BID #30 tablet Sertraline [Zoloft] 25 mg PO QDAY #30 tablet
[2019-11-17] MEDS ORDERED: SERTRALINE 25 MG TAB PO SCH (10:00)
[2019-11-17] MEDS: NITROGLYCERIN 2% OINT 1 GM TP SCH ×2 (10:00→10:01)
[2019-11-17] MEDS: OMEGA-3 FATTY ACIDS/FISH OIL 1 GRAM CAP PO SCH (10:01)
[2019-11-17] MEDS: risperiDONE 0.25 MG TAB PO SCH (10:01)
[2019-11-17] MEDS: HEPARIN 5,000 UNIT/1 ML VIAL SUB-Q SCH (10:01)
[2019-11-17] MEDS: ASPIRIN 325 MG TAB PO SCH (10:01)
[2019-11-17] MEDS: MORPHINE 2 MG/1 ML INJ IV PRN (10:09)
--- NOTE | 2019-11-17 11:40 | Progress Note ---
Assessment and Plan - Patient Problems (1) Chest pain Current Visit: Yes Status: Acute Qualifiers: Chest pain type: unspecified Qualified Code(s): R07.9 - Chest pain, unspecified Plan to address problem: Chest pain was atypical, serial ECGs were normal, serial troponin levels were normal, Lexiscan thallium stress test was normal. No further cardiac work-up is indicated. We will follow intermittently. Subjective Date of service: 11/17/19 Interval history: Patient looks and feels well, no cardiac complaints. Objective Vital Signs Temp Pulse Resp BP Pulse Ox 11/17/19 10:00 58 L 11/17/19 04:53 98.0 F 64 16 103/71 94 11/17/19 00:00 60 11/16/19 23:58 98.6 F 58 L 12 107/65 94 11/16/19 21:50 20 11/16/19 20:24 98.0 F 60 12 116/75 94 11/16/19 17:06 97.6 F 64 20 135/86 96 11/16/19 13:44 98.5 F 63 18 122/74 97 11/16/19 12:03 85 - Physical Examination General: Appears Well, No Apparent Distress HEENT: Positive: PERRL Neck: Positive: neck supple Cardiac: Positive: Reg Rate and Rhythm Lungs: Positive: Decreased Breath Sounds Neuro: Positive: Grossly Intact Abdomen: Positive: Soft Skin: Positive: Clear Extremities: Absent: edema
--- NOTE | 2019-11-17 14:48 | Progress Note ---
Subjective - Reason for Consult Consult date: 11/17/19 Reason for consult: SI - Chief Complaint Chief complaint: During my interview with the patient today, he is lying down. Asleep. A sitter is at bedside. He is a/o x 3. The patient verbalizes being "depressed." He c/o being suicidal but states he doesn't have a plan. He says, "when things get this bad I wish I was with my son." The patient blames himself for his son's . He says he "keeps hearing his voice and that last image of him shooting himself." The patient says he has "been sleeping better." REVIEW OF SYSTEMS Constitutional: Negative for weight loss ENT: Negative for stridor Respiratory: Negative for cough or hemoptysis All other systems reviewed and are negative MENTAL STATUS EXAMINATION General Appearance and Behavior: Dressed appropriately, Polite Mood: Depressed Affect and affective range: Restricted Thought Process: Fluent/Logical Thought Content: Within reality Speech: Normal volume, Regular rate and rhythm Suicidal Ideation: Suicidal Homicidal Ideation: Denies HI Hallucinations: Visual (flashbacks)/Auditory Insight and Judgment: Limited Memory/Cognition: Normal Assessment (1) MDD (major depressive disorder), recurrent severe Current Visit: Yes Status: Acute (2) PTSD (post-traumatic stress disorder) Current Visit: Yes Status: Acute PLAN MEDICATIONS: Continue current medications Risks, benefits and alternatives of medications discussed with the patient, questions answered and consent obtained from patient. PSYCHOTHERAPY: Supportive psychotherapy provided MEDICAL: Per primary team DELIRIUM PRECAUTIONS: Please re-orient patient frequently, keep lights on during the day, and minimize benzodiazepines and opiates as these medications could worsen patient's confusion. 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 Please contact with any questions and/or concerns. Mental Status Exam - Vital signs Last Vital Signs Temp 98.0 F 11/17/19 04:53 Pulse 58 L 11/17/19 10:00 Resp 16 11/17/19 04:53 BP 103/71 11/17/19 04:53 Pulse Ox 94 11/17/19 04:53
== END 2019-11-17 15:30 | DRG 313 ==
LOC: ED 17:15 → 4A 23:33 → OBSVTOIN 11-14 12:20
PROVIDERS: ADMIT Internal Medicine; ATTEND Internal Medicine
DX: R07.89 Other chest pain (principal); F33.2 Major depressive disorder, recurrent severe without psychotic features; E87.6 Hypokalemia; I25.2 Old myocardial infarction; F41.9 Anxiety disorder, unspecified; F17.200 Nicotine dependence, unspecified, uncomplicated; I25.10 Atherosclerotic heart disease of native coronary artery without angina pectoris; I48.91 Unspecified atrial fibrillation; E66.01 Morbid (severe) obesity due to excess calories; Z68.38 Body mass index [BMI] 38.0-38.9, adult; Z79.82 Long term (current) use of aspirin
CPT/HCPCS: 36415; 71046; 78452; 80053; 81001; 82550; 82553; 84484; 85025; 93005; 93017; 99406; G0378; A9502; J1170; J1644; J1885; J2270; J2405; J2785; U0003-CS